=== PATIENT | female | born 1975 | race Caucasian/White ===

== ENCOUNTER 2016-11-01 23:08 | Emergency (ER) | payer OTHER ==
[2016-11-01 23:56] LABS: Urine Bacteria Absent (Absent); Urine Bilirubin Negative (Negative); Urine Glucose Negative (Negative); Urine Nitrite Negative (Negative)
[2016-11-02] MEDS ORDERED: Sulfamethox/Trimethoprim DS 800/160* TAB PO ONE (02:26)
--- NOTE | 2016-11-02 02:28 | ED ---
Jenaro Banks [place], scribed for Camacho Graham MD on 11/02/16 at 0213 . Back Pain - HPI Summary HPI Summary: Patient is a 40 y/o F who presents to the ED with left flank pain for the past week, worse today. She reports increased fatigue and nausea, but denies V/D or fever. Pt had an appointment with her physician on 10/29/16, but was not able to make it due responsibility to children. She also reports a hx of UTIs ( higher in frequency recently) and states that she was recently diagnosed with one. She also states that she has been taking Ibuprofen for pain with little to no alleviation. Pt reports drug allergy to Cephalexin and narcotics. She denies seeing Dr. Cameron (urologist) since a couple of weeks ago. PMHx of neurogenic bladder (self-cath) and one nonfunctional kidney. - History of Current Complaint Chief Complaint: EDFlankPain Stated Complaint: FLANK PAIN Time Seen by Provider: 11/02/16 02:09 Hx Obtained From: Patient Hx Last Menstrual Period: 12/29/15 Onset/Duration: Gradual Onset, Lasting Days, Still Present Onset/Duration: Started Days Ago, Atraumatic, Still Present Timing: Lasting Days Back Pain Location: Is Discrete @ - Left CVA. Severity Initially: Moderate Severity Currently: Moderate Pain Intensity: 8 Pain Scale Used: 0-10 Numeric Aggravating Symptom(s): Nothing Alleviating Symptom(s): Nothing Associated Signs And Symptoms: Positive: Flank Pain - Allergies/Home Medications Allergies/Adverse Reactions: Allergies Allergy/AdvReac Type Severity Reaction Status Date / Time Cephalexin [From Keflex] Allergy Intermediate See Comment Verified 11/02/16 00: 25 Hydrocodone [From Vicodin] Allergy Unknown Verified 11/02/16 00:25 Reaction Details ALL NARCOTICS Allergy Severe HIVES/DYSPN Uncoded 11/02/16 00:25 EA/ITCHING/ VOMITING PMH/Surg Hx/FS Hx/Imm Hx Endocrine/Hematology History: Reports: Hx Diabetes, Hx Thyroid Disease - Hypothyroidism Denies: Hx Anticoagulant Therapy, Hx Sickle Cell Disease Cardiovascular History: Denies: Hx Congestive Heart Failure, Hx Deep Vein Thrombosis, Hx Hypertension , Hx Myocardial Infarction, Hx Pacemaker/ICD, Other Cardiovascular Problems/ Disorders Respiratory History: Reports: Hx Asthma Denies: Hx Chronic Obstructive Pulmonary Disease (COPD), Hx Lung Cancer, Hx Pneumonia, Hx Pulmonary Embolism GI History: Reports: Hx Gastroesophageal Reflux Disease - NOT MEDICATED Denies: Hx Gall Bladder Disease, Hx Gastrointestinal Bleed, Hx Ulcer, Hx Urosepsis History: Reports: Hx Renal Disease - has one working kidney; other has disinegrated believes to be right Denies: Hx Kidney Stones, Other Problems/Disorders Musculoskeletal History: Reports: Hx Arthritis - HIPS AND BACK Sensory History: Denies: Hx Contacts or Glasses, Hx Hearing Aid Opthamlomology History: Denies: Hx Contacts or Glasses Neurological History: Denies: Hx Dementia, Hx Migraine, Hx Seizures, Hx Transient Ischemic Attacks (TIA) Psychiatric History: Reports: Hx Anxiety - ON MEDICATION, Hx Depression - ON MEDICATION, Hx Panic Disorder - ANXIETY - Surgical History Surgery Procedure, Year, and Place: LSPINE SURGERIES LAST ON 03/26 FOR TETHERED CORD,2 C SECTIONS,LAP DAMARIS,TUBAL LIGATION, DENTAL EXTRACTION 05/20/14 Hx Anesthesia Reactions: No - Immunization History Date of Tetanus Vaccine: utd Date of Influenza Vaccine: unk Infectious Disease History: No Infectious Disease History: Denies: Traveled Outside the [place] in Last 30 Days - Family History Known Family History: Positive: Cardiac Disease, Other - no kidney disease known. - Social History Alcohol Use: None Hx Substance Use: No Substance Use Type: Reports: None Hx Tobacco Use: Yes Smoking Status (MU): Former Smoker Type: Cigarettes Have You Smoked in the Last Year: No Review of Systems Positive: Fatigue. Negative: Fever Positive: Nausea. Negative: Vomiting, Diarrhea Positive: flank pain - Left. All Other Systems Reviewed And Are Negative: Yes Physical Exam Triage Information Reviewed: Yes Vital Signs On Initial Exam: Initial Vitals Temp Pulse Resp BP Pulse Ox 98.5 F 80 16 102/57 98 11/01/16 23:20 11/01/16 23:20 11/01/16 23:20 11/01/16 23:20 11/01/16 23:20 Vital Signs Reviewed: Yes Appearance: Positive: Well-Appearing, No Pain Distress Skin: Positive: Warm Head/Face: Positive: Normal Head/Face Inspection Eyes: Positive: SEGUNDO ENT: Positive: Hearing grossly normal Neck: Positive: Supple Respiratory/Lung Sounds: Positive: Clear to Auscultation, Breath Sounds Present Cardiovascular: Positive: RRR Abdomen Description: Positive: Nontender, No Organomegaly, Soft. Negative: CVA Tenderness (R), CVA Tenderness (L) Bowel Sounds: Positive: Present Musculoskeletal: Positive: Strength/ROM Intact Neurological: Positive: Alert, Oriented to Person Place, Time - [place] Coma Scale Coma Scale Total: 15 Diagnostics - Vital Signs Vital Signs Temp Pulse Resp BP Pulse Ox 11/02/16 00:20 98.4 F 77 18 123/64 97 11/01/16 23:20 98.5 F 80 16 102/57 98 - Laboratory Lab Results: Lab Results 11/01/16 Range/Units 23:40 Urine Color Yellow Urine Appearance Cloudy Urine pH 5.0 (5-9) Ur Specific Isabella 1.013 (1.010-1.030) Urine Protein Negative (Negative) Urine Ketones Negative (Negative) Urine Blood 1+ H (Negative) Urine Nitrate Negative (Negative) Urine Bilirubin Negative (Negative) Urine Urobilinogen Negative (Negative) Ur Leukocyte Esterase 2+ H (Negative) Urine WBC (Auto) 3+(>20/hpf) H (Absent) Urine RBC (Auto) 1+(3-5/hpf) H (Absent) Ur Squamous Epith Cells Present H (Absent) Urine Bacteria Absent (Absent) Urine Glucose Negative (Negative) Lab Statement: Any lab studies that have been ordered have been reviewed, and results considered in the medical decision making process. Back Pain Course/Dx - Course Course Of Treatment: 40 y/o F presents with left flank pain for the past week, worse today. She reports increased fatigue and nausea, but denies V/D or fever. She also reports a hx of UTIs (higher in frequency recently) and states that she was recently diagnosed with one. Pt will be DCd on Bactrim to follow up with her urologist. - Diagnoses Provider Diagnoses: UTI (urinary tract infection) Discharge - Discharge Plan Condition: Stable Disposition: HOME Prescriptions: Sulfamethox/Trimethoprim DS* [Bactrim DS 800/160 TAB*] 1 tab PO BID #14 tab Patient Education Materials: Urinary Tract Infection in Women (ED) Referrals: Dev Cameron MD [Medical Doctor] - Additional Instructions: Please follow up with Dr. Cameron this week. The documentation as recorded by the Jenaro ghotra Salem accurately reflects the service I personally performed and the decisions made by , Camacho Graham MD.
[2016-11-02 03:02] VITALS: BP 110/56
== END 2016-11-02 02:45 | disposition home or self-care (01) ==
LOC: ED 23:08
DX: N39.0 Urinary tract infection, site not specified (principal); R53.83 Other fatigue; R11.0 Nausea; N31.9 Neuromuscular dysfunction of bladder, unspecified; N28.9 Disorder of kidney and ureter, unspecified; Z87.440 Personal history of urinary (tract) infections; E11.9 Type 2 diabetes mellitus without complications; E03.9 Hypothyroidism, unspecified; J45.909 Unspecified asthma, uncomplicated; K21.9 Gastro-esophageal reflux disease without esophagitis; F41.0 Panic disorder [episodic paroxysmal anxiety]; F32.9 Major depressive disorder, single episode, unspecified; Z90.49 Acquired absence of other specified parts of digestive tract; Z88.1 Allergy status to other antibiotic agents; Z88.5 Allergy status to narcotic agent; Z87.891 Personal history of nicotine dependence
CPT/HCPCS: 81003; 81015; 87086; 99282; A9270-GY

== ENCOUNTER 2017-01-12 18:10 | Emergency (ER) | payer OTHER ==
[2017-01-12 19:17] VITALS: BP 107/64
--- NOTE | 2017-01-12 20:49 | UC ---
Complaint Female HPI - HPI Summary HPI Summary: ONSET OF LEFT FLANK PAIN AND URINARY FREQUENCY YESTERDAY. URINE IS CLOUDY AND MALODOROUS. NO FEVER. HAS SOME NAUSEA. PT SELF CATHS SINCE 2004. 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 UROLOGIST DR. CAMERON. - History Of Current Complaint Chief Complaint: UCGU Stated Complaint: KIDNEY PAIN Time Seen by Provider: 01/12/17 20:32 Hx Obtained From: Patient Hx Last Menstrual Period: tubal ligation Onset/Duration: Sudden Onset, Lasting Hours, Still Present Timing: Constant Severity Initially: Moderate Severity Currently: Moderate Pain Intensity: 10 - SITTING IN EXAM ROOM IN NO DISTRESS Pain Scale Used: 0-10 Numeric Character: Colicy Aggravating Factor(s): Nothing Alleviating Factor(s): Nothing Associated Signs And Symptoms: Positive: Back Pain, Nausea. Negative: Fever - Allergies/Home Medications Allergies/Adverse Reactions: Allergies Allergy/AdvReac Type Severity Reaction Status Date / Time Cephalexin [From Keflex] Allergy Intermediate See Comment Verified 11/02/16 00: 25 Hydrocodone [From Vicodin] Allergy Unknown Verified 11/02/16 00:25 Reaction Details ALL NARCOTICS Allergy Severe HIVES/DYSPN Uncoded 11/02/16 00:25 EA/ITCHING/ VOMITING PMH/Surg Hx/FS Hx/Imm Hx Endocrine History: Diabetes, Hypothyroidism Respiratory History: Asthma Psychological History: Anxiety, Depression Other History Of: Negative For: HIV, Hepatitis B, Hepatitis C, Anticoagulant Therapy - Surgical History Surgical History: Yes Surgery Procedure, Year, and Place: LSPINE SURGERIES LAST ON 03/26 FOR TETHERED CORD,2 C SECTIONS,LAP DAMARIS,TUBAL LIGATION, DENTAL EXTRACTION 05/20/14 - Family History Known Family History: Positive: Cardiac Disease, Diabetes, Other - no kidney disease known. - Social History Alcohol Use: None Substance Use Type: None Smoking Status (MU): Former Smoker Type: Cigarettes Have You Smoked in the Last Year: No When Did the Patient Quit Smoking/Using Tobacco: 2001 Review of Systems Constitutional: Negative Respiratory: Negative Cardiovascular: Negative Gastrointestinal: Abdominal Pain, Nausea Genitourinary: Frequency All Other Systems Reviewed And Are Negative: Yes Physical Exam Triage Information Reviewed: Yes Appearance: Well-Appearing, No Pain Distress, Well-Nourished Vital Signs: Initial Vital Signs Temp 99.0 F 01/12/17 19:13 Pulse 87 01/12/17 19:13 Resp 18 01/12/17 19:13 BP 107/64 01/12/17 19:13 Pulse Ox 98 01/12/17 19:13 Vital Signs Reviewed: Yes Eyes: Positive: Conjunctiva Clear ENT: Positive: Hearing grossly normal Neck: Positive: Supple Respiratory: Positive: No respiratory distress, No accessory muscle use Cardiovascular: Positive: Pulses Normal Abdomen Description: Positive: Soft, CVA Tenderness (L), Other: - MILDLY TENDER SUPRAPUBIC. Negative: CVA Tenderness (R), Distended, Guarding Musculoskeletal: Positive: No Edema Neurological: Positive: Alert Psychological: Positive: Age Appropriate Behavior Skin: Negative: rashes Diagnostics - Laboratory Diagnostic Studies Completed/Ordered: URINE DIP SP. GR. 1.010, 3+ LEUKS, 3+ BLOOD, 3+ PROTEIN Complaint Female Dx - Differential Dx/Diagnosis Provider Diagnoses: UTI Discharge - Discharge Plan Condition: Stable Disposition: HOME Prescriptions: Sulfamethox/Trimethoprim DS* [Bactrim DS 800/160 TAB*] 1 tab PO BID #19 tab Patient Education Materials: Urinary Tract Infection in Women (ED) Referrals: Sal Valencia MD [Primary Care Provider] - If Needed Dev Cameron MD [Medical Doctor] - If Needed Additional Instructions: CALL DR. CAMERON'S OFFICE ON SATURDAY TO LET THEM KNOW ABOUT YOUR DIAGNOSIS AND TREATMENT.
[2017-01-12] MEDS ORDERED: Sulfamethox/Trimethoprim DS 800/160* TAB PO ONE (21:11)
== END 2017-01-12 21:28 | disposition home or self-care (01) ==
LOC: UCEAST 18:10
DX: N39.0 Urinary tract infection, site not specified (principal); B96.1 Klebsiella pneumoniae [K. pneumoniae] as the cause of diseases classified elsewhere; R11.0 Nausea; N31.9 Neuromuscular dysfunction of bladder, unspecified; E11.9 Type 2 diabetes mellitus without complications; E03.9 Hypothyroidism, unspecified; J45.909 Unspecified asthma, uncomplicated; F41.9 Anxiety disorder, unspecified; F32.9 Major depressive disorder, single episode, unspecified; Z90.49 Acquired absence of other specified parts of digestive tract; Z88.5 Allergy status to narcotic agent; Z88.1 Allergy status to other antibiotic agents; Z87.891 Personal history of nicotine dependence
CPT/HCPCS: 81003; 87077; 87086; 87186; 99212; A9270-GY; G0463